=== PATIENT | female | born 1995 | race African-American/Black ===

== ENCOUNTER 2016-07-19 10:07 | Emergency (ER) | payer MEDICAID ==
[~2016-07-19] VITALS: Ht 152.4 cm; Wt 65.0 kg
[~2016-07-19 10:07] MED LIST: ALBU8I INH; MEDR4PAK3 PO
[2016-07-19 10:09] VITALS: BP 115/67; PULSE 95; RESP 12; TEMP 98.2; O2SAT 97
--- NOTE | 2016-07-19 11:52 | PD ---
HPI Chief Complaint: Injury Time Seen by Provider: 11:52 Travel History International Travel<30 days: No Contact w/Intl Traveler<30days: No Traveled to known affect area: No History of Present Illness HPI 21-year-old female presents to the emergency department for evaluation of 3 day history of left hand third finger swelling. The patient states that she's had some swelling to the radial aspect of her left hand fingernail for the past 3 days. She states that this started after she pulled off a fake nail. States that the swelling has decreased this morning. Denies any fever, chills, discharge or drainage, traumatic injury to the finger. No other complaints. History Past Medical Histgory Medical History: Denies Significant Hx LMP: JUN 12 2016 Social History Alcohol Use: No Tobacco Use: No Allergies-Medications (Allergen,Severity, Reaction): Coded Allergies: No Known Allergies (Unverified , 07/19/16) Reported Meds & Prescriptions Reported Meds & Active Scripts Active No Active Prescriptions or Reported Medications Review of Systems Except as stated in HPI: all other systems reviewed are Neg Physical Exam Narrative GENERAL: Well-nourished and well-developed female patient in no acute distress who is nontoxic appearing. SKIN: Warm and dry. EXTREMITY: There is very minimal swelling to the radial aspect of the left hand nail fold. No fluid collection or drainage. No erythema or warmth. Full range of motion in all joints. No joint swelling/injury. Normal opposition of thumb. Distal extremity neurovascularly intact with intact two point discrimination. NEUROLOGICAL: Awake, alert, and oriented. Normal speech and gait. Cranial nerves are grossly intact. Data Data Last Documented VS Vital Signs Date Time Temp Pulse Resp B/P Pulse Ox O2 Delivery O2 Flow Rate FiO2 07/19/16 10:09 98.2 95 12 115/67 97 Room Air [facility] Medical Screen Exam Complete: Yes Emergency Medical Condition: No Differential Diagnosis Paronychia versus hangnail versus cellulitis unlikely Narrative Course 21-year-old female presents to the emergency department for evaluation of left hand third finger swelling. Patient is afebrile, vital signs are stable. There is really a very minimal amount of swelling along the lateral nail fold. This may have been a paronychia that has resolved on its own. At this time there is no I&D or antibiotic treatment necessary. Discussed supportive care. Advised follow-up with her PCP. A medical screening exam was performed: At the time of evaluation the presenting medical condition was determined not to be of an emergent nature. Patient was given options for additional community resources from which to obtain care. The Patient Has Been advised to seek medical attention for their presenting complaint. The patient has been advised to return to the ER at any time if an emergent condition develops. Primary Impression: Encounter for medical screening examination Scripts No Active Prescriptions or Reported Meds Disposition: EDGO-ED USE ONLY Condition: Janet Silva Jul 19, 2016 11:52
== END 2016-07-19 11:55 | disposition left against medical advice (07) ==
LOC: NETRI 10:07
DX: L98.8 Other specified disorders of the skin and subcutaneous tissue (principal)
CPT/HCPCS: 99281

== ENCOUNTER 2016-07-22 20:46 | Emergency (ER) | payer MEDICAID ==
[~2016-07-22] VITALS: Ht 152.4 cm; Wt 66.0 kg
[2016-07-22 20:49] VITALS: BP 129/78; PULSE 96; RESP 20; TEMP 98.1; O2SAT 98
[2016-07-22] MEDS ORDERED: CEPH-460 PO (22:06)
[2016-07-22] MEDS ORDERED: ALBU6.7H INH (22:06)
--- NOTE | 2016-07-22 22:10 | PD ---
HPI Chief Complaint: Skin Problem Time Seen by Provider: 22:06 Travel History International Travel<30 days: No Contact w/Intl Traveler<30days: No Traveled to known affect area: No History of Present Illness HPI 21-year-old black female presents to emergency Department with complaints of a paronychia to her left middle finger for the past 2 weeks. She states it has become increasingly painful. She had limitation nails earlier. She also states that she has asthma and is ran out of her inhaler would like a refill. LOCATION: Left middle finger QUALITY: Throbbing SEVERITY: Mild TIMING: Constant DURATION: 2 weeks CONTACTS: MODIFYING FACTORS: Worse with palpation and movement of the finger. Some relief with elevation. ASSOCIATED TIME AND SYMPTOMS: Positive history of asthma with occasional shortness of breath or wheezing. PFSH Past Medical History Asthma: Yes Diminished Hearing: No Respiratory: Yes (asthma) Immunizations Current: Yes Tetanus Vaccination: Unknown ?: Not LMP: 07/22/16 : 1 Para: 1 Miscarriage: 0 : 0 Past Surgical History Abdominal Surgery: Yes (CSECTION) Section: Yes (2015) Social History Alcohol Use: No Tobacco Use: No Substance Use: No Allergies-Medications (Allergen,Severity, Reaction): Coded Allergies: No Known Allergies (Unverified , 07/22/16) Reported Meds & Prescriptions Reported Meds & Active Scripts Active No Active Prescriptions or Reported Medications Review of Systems Except as stated in HPI: all other systems reviewed are Neg General / Constitutional: No: Fever, Chills Eyes: No: Blurred Vision HENT: No: Headaches, Vertigo Cardiovascular: No: Chest Pain or Discomfort, Palpitations Respiratory: Positive: Cough, Wheezing, No: Shortness of Breath Gastrointestinal: No: Nausea, Vomiting Genitourinary: No: Frequency, Dysuria Physical Exam Narrative GENERAL: Well-developed, well-nourished in no acute distress. Nontoxic appearing. HEAD: Normocephalic, atraumatic. EYES: Pupils equal round and reactive. Extraocular motions intact. No scleral icterus. No injection or drainage. ENT: TMs clear without erythema. The external auditory canals clear. Nose: clear . Posterior pharynx is pink and moist. No tonsillar edema or exudate. Uvula midline. Airway patent. NECK: Trachea midline.Supple, nontender, moves head freely. No central bony tenderness or spasm. CARDIOVASCULAR: Regular rate and rhythm without murmurs, gallops, or rubs. RESPIRATORY: Clear to auscultation. Breath sounds equal bilaterally. No wheezes , rales, or rhonchi. GASTROINTESTINAL: Abdomen soft, non-tender, nondistended. No hepato-splenomegaly , or palpable masses. No guarding. EXTREMITIES: No clubbing, cyanosis, or edema. No joint tenderness, effusion, or edema noted. Patient has mild erythema and tenderness to the radial aspect of the nailbed of the left middle finger. BACK: Nontender without deformity or crepitance. No flank tenderness. Data Data Last Documented VS Vital Signs Date Time Temp Pulse Resp B/P Pulse Ox O2 Delivery O2 Flow Rate FiO2 07/22/16 20:49 98.1 96 20 129/78 98 MDM Medical Decision Making Medical Screen Exam Complete: Yes Emergency Medical Condition: Yes Medical Record Reviewed: Yes Differential Diagnosis MDM: High Differential diagnoses: Abscess, folliculitis, cellulitis, lymphangitis, abrasion, contact dermatitis, asthma Narrative Course Patient has a paronychia to the left middle finger which has been incised and drained. This is paronychia left middle finger, asthma Procedures Procedure Narrative Incision left middle finger paronychia: The skin is prepped with Betadine. Ethyl chloride is uses as a topical refrigerator. After adequate anesthesia a 15 blade scalpel is used to make a 1 cm incision with expression of bloody pus. Patient tolerated procedure well. No complications. Dressing applied. Diagnosis Primary Impression: Paronychia of left middle finger Additional Impression: Asthma Qualified Code: J45.20 - Mild intermittent asthma without complication Patient Instructions: General Instructions Additional Instructions: Rest. Elevation. keep clean and dry. Soak in Epsom salts 2-3 times daily Daily wound care with soap, water and Neosporin. Three Advil every 6 hours. Keflex. Albuterol for her asthma.. Follow-up with a primary care doctor in one week. Return to the ER for any problems. Med/Other Pt SpecificInfo: Prescription(s) given Scripts Cephalexin (Keflex)500 Mg Ooj104 Mg PO Q6H #28 CAP Prov:Trudy Romo MD 07/22/16 Albuterol 6.7 GM Inh (Proventil Hfa 6.7 GM Inh)90 Mcg/Act Aer2 Puff INH Q4-6H PRN (SHORTNESS OF BREATH) #1 INHALER Prov:Trudy Romo MD 07/22/16 Disposition: 01 DISCHARGE HOME Condition: Stable Gurvinder Stevens Jul 22, 2016 22:10
[2016-07-22] MEDS ORDERED: IBUPROFEN 800 MG TAB PO ONE (22:30)
== END 2016-07-22 22:32 | disposition home or self-care (01) ==
LOC: NEPB 20:46
DX: L03.012 Cellulitis of left finger (principal); J45.909 Unspecified asthma, uncomplicated; R05 Cough
CPT/HCPCS: 10060

== ENCOUNTER 2017-01-18 22:12 | Emergency (ER) | payer OTHER, MEDICAID ==
[~2017-01-18] VITALS: Ht 154.9 cm; Wt 68.0 kg
[~2017-01-18 22:12] MED LIST changes: +ALBU6.7H INH; -ALBU8I INH; +CEPH-460 PO; -MEDR4PAK3 PO
[2017-01-18 22:13] VITALS: BP 118/75; PULSE 98; RESP 16; TEMP 98.5; O2SAT 98
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
[2017-01-18] MEDS ORDERED: DICL50TA3 PO (22:44)
[2017-01-18] MEDS ORDERED: CYCL1TAB29 PO (22:44)
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
== END 2017-01-18 23:09 | disposition home or self-care (01) ==
LOC: NEPK 22:12
DX: M54.2 Cervicalgia (principal); M54.9 Dorsalgia, unspecified; V89.2XXA Person injured in unspecified motor-vehicle accident, traffic, initial encounter
CPT/HCPCS: 99284

== ENCOUNTER 2017-06-24 12:20 | Emergency (ER) | payer MEDICAID ==
[~2017-06-24] VITALS: Ht 152.4 cm; Wt 67.0 kg
[~2017-06-24 12:20] MED LIST changes: -CEPH-460 PO; +CYCL10TA PO; +DICL50TA3 PO
[2017-06-24 12:22] VITALS: BP 138/63; PULSE 80; RESP 14; TEMP 97.9; O2SAT 100
[2017-06-24] MEDS ORDERED: MOME17I EACH NARE (13:31)
[2017-06-24] MEDS ORDERED: AMOX500C PO (13:31)
--- NOTE | 2017-06-24 13:31 | PD ---
HPI Chief Complaint: Cold / Flu Symptoms Time Seen by Provider: 13:15 Travel History International Travel<30 days: No Contact w/Intl Traveler<30days: No Traveled to known affect area: No History of Present Illness HPI 21-year-old female presents to the emergency department complaint of ear pressure, throat pain, cough, nasal congestion, sinus pressure 1 week. Denies fevers, vomiting, abdominal pain. Denies chest tightness, shortness of breath, wheezing. Has been using [id number] medications for symptom management. Symptoms are mild in severity. No known relieving or aggravating factors. Her daughter was sick with similar symptoms. History of asthma. No known allergies. No primary care provider. Has no other medical complaints. No other modifying factors or associated signs and symptoms. PFSH Past Medical History Asthma: Yes Diminished Hearing: No Respiratory: Yes (asthma) Immunizations Current: Yes ?: Not : 1 Para: 1 Miscarriage: 0 : 0 Past Surgical History Abdominal Surgery: Yes (CSECTION) Section: Yes (2015) Social History Alcohol Use: No Tobacco Use: No Substance Use: No Allergies-Medications (Allergen,Severity, Reaction): Coded Allergies: No Known Allergies (Unverified Adverse Reaction, Unknown, 06/24/17) Reported Meds & Prescriptions Reported Meds & Active Scripts Active Nasonex Nasal [place] (Mometasone Furoate) 50 Mcg/Act Naspr 2 [place] EACH NARE DAILY PRN Amoxicillin 500 Mg Cap 500 Mg PO BID 10 Days Flexeril (Cyclobenzaprine HCl) 10 Mg Tab 10 Mg PO TID Diclofenac Sodium DR (Diclofenac Sodium) 50 Mg Tabdr 50 Mg PO TID Proventil Hfa 6.7 GM Inh (Albuterol Sulfate) 90 Mcg/Act Aer 2 Puff INH Q4-6H PRN Review of Systems Except as stated in HPI: all other systems reviewed are Neg Physical Exam Narrative GENERAL: Well-nourished, well-developed black female patient, in no acute distress; afebrile, nontoxic-appearing SKIN: Warm and dry. No rash. HEAD: Atraumatic. Normocephalic. EYES: Pupils equal and round. No scleral icterus. No injection or drainage. ENT: Mucosa pink and moist. No erythema or exudates. No uvular edema. No uvular , palatal, or tonsillar deviation. Airway patent. EARS: Bilateral pinnae and external canals appear within normal limits. Bilateral tympanic membranes without erythema, dullness or perforation. NECK: Trachea midline. No lymphadenopathy. CARDIOVASCULAR: Regular rate and rhythm. No murmur appreciated. RESPIRATORY: No accessory muscle use. Clear to auscultation. Breath sounds equal bilaterally. No retractions or tachypnea. GASTROINTESTINAL: Abdomen soft, non-tender, nondistended. Hepatic and splenic margins not palpable. Bowel sounds are active 4 quadrants. MUSCULOSKELETAL: No obvious deformities. No clubbing. No cyanosis. No edema. NEUROLOGICAL: Awake and alert. Oriented 3. No obvious cranial nerve deficits. Motor grossly within normal limits. Normal speech. Moves all extremities. 5/5 strength to all extremities. PSYCHIATRIC: Appropriate mood and affect; insight and judgment normal. Data Data Last Documented VS Vital Signs Date Time Temp Pulse Resp B/P (MAP) Pulse Ox O2 Delivery O2 Flow Rate FiO2 06/24/17 12:22 97.9 80 14 138/63 (88) 100 Room Air Orders Orders Ed Discharge Order (06/24/17 13:31) [facility] Medical Decision Making Medical Screen Exam Complete: Yes Emergency Medical Condition: Yes Medical Record Reviewed: Yes Differential Diagnosis Viral illness, upper respiratory infection, sinusitis Narrative Course 21-year-old female physical examination consistent with upper respiratory infection. She has been sick for one week and I'll treat with antibiotics secondary to length of illness. She is afebrile and nontoxic appearing. Denies fevers, vomiting. Amoxicillin, Nasonex nasal spray prescribed for home. Instructed patient to follow up with primary care provider. Patient verbalizes understanding and agreement with treatment plan. Patient is medically cleared and stable for discharge. Discussed reasons to return to the emergency department. Patient agrees with treatment plan. The patients vital signs are stable and the patient is stable for outpatient follow-up and treatment. Patient discharged home, stable and in no acute distress. Diagnosis Primary Impression: URI (upper respiratory infection) Qualified Codes: J06.9 - Acute upper respiratory infection, unspecified Referrals: [facility] Primary Care Physician Patient Instructions: General Instructions, Upper Respiratory Infection (ED) Additional Instructions: Ibuprofen or Tylenol as directed and as needed to reduce fever; may alternate ibuprofen and Tylenol as needed every 3 hours to minimize fever [id number] cold/flu medications as directed and as needed for symptom management Get plenty of sleep/rest Drink plenty of fluids to prevent dehydration; such as Gatorade, Powerade, Pedialyte [place] diet to encourage nutrition such as crackers, fruit, applesauce, toast, soup etc. Use an air humidifier/turn off ceiling fans Follow-up with your primary care provider within 1 day Return immediately to the emergency department with worsening of symptoms Med/Other Pt SpecificInfo: Prescription(s) given Scripts Mometasone Nasal [place] (Nasonex Nasal [place]ause) 50 Mcg/Act Naspr 2 SPRAY EACH NARE DAILY Y for NASAL CONGESTION, #1 BOTTLE 0 Refills Prov: Janet Herrera 06/24/17 Amoxicillin (Amoxicillin) 500 Mg Cap 500 MG PO BID for Infection for 10 Days, #20 CAP 0 Refills Prov: Janet Herrera 06/24/17 Disposition: 01 DISCHARGE HOME Condition: Stable Janet Herrera Jun 24, 2017 13:31
== END 2017-06-24 13:52 | disposition home or self-care (01) ==
LOC: NEPK 12:20
DX: J06.9 Acute upper respiratory infection, unspecified (principal); J45.909 Unspecified asthma, uncomplicated
CPT/HCPCS: 99284

== ENCOUNTER 2017-06-26 14:12 | Emergency (ER) | payer MEDICAID ==
[~2017-06-26] VITALS: Ht 152.4 cm; Wt 68.2 kg
[~2017-06-26 14:12] MED LIST changes: +AMOX500C PO; +MOME17I EACH NARE
[2017-06-26 14:15] VITALS: BP 115/74; PULSE 85; RESP 16; TEMP 98.6; O2SAT 100
[2017-06-26] MEDS ORDERED: PROMSYP3 PO (15:02)
--- NOTE | 2017-06-26 15:03 | PD ---
HPI Chief Complaint: Cold / Flu Symptoms Time Seen by Provider: 14:45 Travel History International Travel<30 days: No Contact w/Intl Traveler<30days: No Traveled to known affect area: No History of Present Illness HPI This is a 21-year-old female here with nasal congestion, sore throat, cough ongoing for 10 days. She was seen 2 days prior and put on amoxicillin. She reports she continues to have a cough and nasal congestion. Symptom severity is mild. Denies fever or chills. No aggravating or alleviating factors. Patient is requesting something for her cough. PFSH Past Medical History Asthma: Yes Diminished Hearing: No Respiratory: Yes (asthma) Immunizations Current: Yes ?: Not : 1 Para: 1 Miscarriage: 0 : 0 Past Surgical History Abdominal Surgery: Yes (CSECTION) Section: Yes (2015) Social History Alcohol Use: No Tobacco Use: No Substance Use: No Allergies-Medications (Allergen,Severity, Reaction): Coded Allergies: No Known Allergies (Unverified Adverse Reaction, Unknown, 06/26/17) Reported Meds & Prescriptions Reported Meds & Active Scripts Active Nasonex Nasal [place] (Mometasone Furoate) 50 Mcg/Act Naspr 2 [place] EACH NARE DAILY PRN Amoxicillin 500 Mg Cap 500 Mg PO BID 10 Days Review of Systems Except as stated in HPI: all other systems reviewed are Neg General / Constitutional: No: Fever Eyes: No: Visual changes HENT: Positive: Sore Throat, Congestion Cardiovascular: No: Chest Pain or Discomfort Respiratory: Positive: Cough Gastrointestinal: No: Abdominal Pain Genitourinary: No: Dysuria Skin: No Rash Physical Exam Narrative GENERAL: Alert well-appearing 21-year-old female SKIN: Warm and dry. No rash HEAD: Normocephalic. EYES: No injection or drainage. Ears/nose/throat: No TM erythema. Clear nasal discharge. Mild pharyngeal erythema without tonsillar hypertrophy or exudate NECK: Supple, trachea midline. No JVD or lymphadenopathy. CARDIOVASCULAR: Regular rate and rhythm RESPIRATORY: Breath sounds equal bilaterally. No accessory muscle use. Data Data Last Documented VS Vital Signs Date Time Temp Pulse Resp B/P (MAP) Pulse Ox O2 Delivery O2 Flow Rate FiO2 06/26/17 14:15 98.6 85 16 115/74 (88) 100 MDM Medical Decision Making Medical Screen Exam Complete: Yes Emergency Medical Condition: Yes Differential Diagnosis URI, sinusitis, bronchitis Narrative Course 21-year-old female here with mild URI-like symptoms. Her vital signs are stable. She is well-appearing. She'll be prescribed something for her cough Diagnosis Primary Impression: URI (upper respiratory infection) Qualified Codes: J06.9 - Acute upper respiratory infection, unspecified; B97.89 - Other viral agents as the cause of diseases classified elsewhere Referrals: Primary Care Physician Additional Instructions: Cough medication as needed. Rest and stay well hydrated. Scripts Dextromethorphan-Promethazine Liq (Promethazine-Dextromethorphan Liq) 6.25-15 Mg /5 Ml Syrp 5 ML PO Q6HR for Cough, #120 ML Prov: Lolis Moore 06/26/17 Disposition: 01 DISCHARGE HOME Condition: Stable Lolis Moore Jun 26, 2017 15:03
== END 2017-06-26 15:14 | disposition home or self-care (01) ==
LOC: NEPK 14:12
DX: J02.9 Acute pharyngitis, unspecified (principal); J45.909 Unspecified asthma, uncomplicated
CPT/HCPCS: 99283